=== PATIENT | female | born 1975 | race Caucasian/White ===

== ENCOUNTER 2022-02-27 16:45 | Emergency (ER) | payer OTHER ==
[~2022-02-27] VITALS: Ht 162.6 cm; Wt 69.4 kg
[2022-02-27 17:13] VITALS: BP 157/108
--- NOTE | 2022-02-27 17:45 | NUR ---
PT AMBULATE TO ROOM 6
--- NOTE | 2022-02-27 18:05 | NUR ---
46/F PRESENTS TO ED WITH C/O ELEVATED BLOOD PRESSURE, RIGHT FOOT NUMBNESS, LOWER BACK PAIN, AND A PRESSURE LIKE 9/10 HEADACHE X2 WEEKS. PATIENT REPORTS LAST BP AT WAS 146/110. PATIENT DENIES DIZZINESS OR VISION CHANGES, DENIES RECENT SICK CONTACTS.
--- NOTE | 2022-02-27 18:14 | NUR ---
46YR OLD FEMALE BIB C/O MULTI COMPLIANTS. ELEVATED B/P , R FOOT NUMBESS, LOWER BACK PAIN, FARIDA WRIST PAIN, PRESSURE QUINN X 2WEEKS. 9/10 PAIN. AXO4 . PT SITTIN IN BED HOB ELEVATED. BED AT LOWEST POSITION. SULFA PCN MORPHINE AX HIGH CHOL
--- NOTE | 2022-02-27 18:28 | NUR ---
ER AT BEDSIDE
[2022-02-27] MEDS ORDERED: LISI10TA30 PO (18:58)
[2022-02-27] MEDS ORDERED: ACET-8386 PO ×2 (18:58→20:45)
[2022-02-27 19:04] VITALS: BP 157/108
--- NOTE | 2022-02-27 19:04 | NUR ---
Patient discharged with v/s stable. Written and verbal after care instructions given and explained. Patient alert, oriented and verbalized understanding of instructions. Ambulatory with steady gait. All questions addressed prior to discharge. ID band removed. Patient advised to follow up with PMD. Rx of HYDROCODONE/ACETAMINOPHEN given. Patient educated on indication of medication including possible reaction and side effects. Opportunity to ask questions provided and answered.
--- NOTE | 2022-02-27 19:10 | NUR ---
The patient's care was reviewed and supervised by Cassandra Lee RN.
== END 2022-02-27 19:04 | disposition home or self-care (01) ==
LOC: MED 16:45
DX: I10 Essential (primary) hypertension (principal); R51.9 Headache, unspecified; M54.50 Low back pain, unspecified; F12.90 Cannabis use, unspecified, uncomplicated; Z88.0 Allergy status to penicillin; Z88.1 Allergy status to other antibiotic agents; Z88.2 Allergy status to sulfonamides; Z88.5 Allergy status to narcotic agent; Z90.710 Acquired absence of both cervix and uterus
CPT/HCPCS: 99283

== ENCOUNTER 2022-02-28 15:02 | Emergency (ER) | payer OTHER ==
[~2022-02-28 15:02] MED LIST: ACET-8386 PO; LISI10TA30 PO
--- NOTE | 2022-02-28 15:32 | NUR ---
ATTEMPTED TO BRING PT BACK, NO ANSWER IN LOBBY/OUTSDIE
--- NOTE | 2022-02-28 15:52 | NUR ---
ATTEMPTED TO TRIAGE PT, NOT FOUND IN LOBBY/OUTSIDE
--- NOTE | 2022-02-28 16:03 | NUR ---
LAST ATTEMPT TO BRING PT BACK, NOT FOUND IN LOBBY/OUTSIDE
--- NOTE | 2022-02-28 16:03 | NUR ---
PATIENT LEFT WITHOUT BEING SEEN BY DR. RUBI. NO FURTHER CARE PROVIDED FOR PATIENT.
== END 2022-02-28 15:32 | disposition left against medical advice (07) ==
LOC: MED 15:02
DX: R51.9 Headache, unspecified (principal); R42 Dizziness and giddiness; Z53.21 Procedure and treatment not carried out due to patient leaving prior to being seen by health care provider